=== PATIENT | female | born 1935 ===

== ENCOUNTER 2018-10-20 15:10 | Emergency (ER) ==
[~2018-10-20] VITALS: Ht 149.9 cm; Wt 61.2 kg
[2018-10-20] MEDS ORDERED: METOPROLOL SUCC25 MG PO (15:26)
[2018-10-20] MEDS ORDERED: ASPIR-LOW81 MG PO (15:26)
== END 2018-10-20 17:22 | disposition home or self-care (01) ==
LOC: ED 15:10
DX: J06.9 Acute upper respiratory infection, unspecified (principal); Z95.5 Presence of coronary angioplasty implant and graft; Z90.710 Acquired absence of both cervix and uterus; Z79.82 Long term (current) use of aspirin
CPT/HCPCS: 71046; 87880; 99283-25